=== PATIENT | male | born 1950 | race Two or more races ===

== ENCOUNTER → 2022-06-09 | Day surgery (SDC) | payer MEDICARE ==
[2022-06-08 10:04] LABS: Basophils # (auto) 0 10 ^3/uL (0-0.2); Eosinophils # (auto) 0.1 10 ^3/uL (0-0.8); Hemoglobin 9.1 g/dL (13.5-17.5); Lymphocytes # (auto) 1.3 10 ^3/uL (0.4-5.4); Monocytes # (auto) 0.5 10 ^3/uL (0-1.3); Neutrophils # (auto) 2.2 10 ^3/uL (1.6-8.6); Nucleated Red Blood Cells % 0.1 %; Partial Thromboplastin Time 26.2 sec (24.6-33.4); White Blood Cell 4.1 10^3/uL (4.4-10.8)
[2022-06-08 10:06] LABS: Basophils % (auto) 0.6 % (0.0-2.0); Eosinophils % (auto) 1.8 % (0.0-7.0); Hematocrit 29.6 % (41.0-53.0); Lymphocytes % (auto) 31.9 % (10.0-50.0); Mean Corpuscular Hemoglobin 21.2 pg (28.0-32.0); Mean Corpuscular Hgb Conc. 30.7 g/dL (32.0-36.0); Mean Corpuscular Volume 68.9 fL (80.0-100.0); Neutrophils % (auto) 54.7 % (37.0-80.0); Red Cell Distribution Width 19.7 % (11.8-14.3)
[2022-06-08 10:12] LABS: Albumin 3.6 g/dL (3.4-5.0); Calcium 8.5 mg/dL (8.5-10.1); Potassium 4.2 mmol/L (3.5-5.1)
[2022-06-08 10:15] LABS: BUN/Creatinine Ratio 36.2; Bilirubin, Total 0.4 mg/dL (0.2-1.0); Total Protein 6.8 g/dL (6.4-8.2)
[~2022-06-09] VITALS: Ht 160 cm; Wt 42.2 kg
[~2022-06-09] MED LIST: ATOR10TA PO; FERR-7 PO; LEVO25TA6 PO; LIDOCAINE VISCOUS 2% 15ML UD ONE; MEGE20TA5 PO; diphenhdrAMINE HCL 50 MG/1 ML VL ONE
[2022-06-09] MEDS: MIDAZOLAM HCL 2MG/2ML 2ml VIAL (1mg/ml) ONE ×2 (13:33→13:50)
[2022-06-09] MEDS: fentaNYL CITRATE 100 MCG/2 ML VL ONE ×2 (13:33→13:50)
[2022-06-09 14:45] VITALS: BP 126/81
== END | disposition home or self-care (01) ==
LOC: GI 10:06
PROVIDERS: ATTEND Internal Medicine Gastroenterology
DX: K92.1 Melena (principal); K25.9 Gastric ulcer, unspecified as acute or chronic, without hemorrhage or perforation; K44.9 Diaphragmatic hernia without obstruction or gangrene; K22.10 Ulcer of esophagus without bleeding; K57.30 Diverticulosis of large intestine without perforation or abscess without bleeding; F50.89 Other specified eating disorder; E03.9 Hypothyroidism, unspecified; E78.5 Hyperlipidemia, unspecified; Z79.890 Hormone replacement therapy; D64.9 Anemia, unspecified; Z98.890 Other specified postprocedural states; Z20.822 Contact with and (suspected) exposure to COVID-19
CPT/HCPCS: 36415; 43239; 45378; 80053; 85025; 85610; 85730; J1200; J2250; J3010; J7030; U0003; 99152; 99153